=== PATIENT | female | born 1995 | race Caucasian/White ===

== ENCOUNTER 2018-05-01 16:49 | Inpatient (IN) ==
[2018-05-01] MEDS ORDERED: CefOXitin Inj 2 GM in Sodium Chloride 0.9% 100 ML IV PRN (16:58)
[2018-05-01] MEDS ORDERED: BUTORPHANOL TARTRATE 2 MG/1 ML VIAL IVP PRN (16:58)
[2018-05-01] MEDS ORDERED: OXYTOCIN 10 UNIT/1 ML IM PRN (16:58)
[2018-05-01] MEDS ORDERED: LIDOCAINE W/ SODIUM BICARB 0.5 ML SYR SUBD PRN (16:58)
[2018-05-01] MEDS ORDERED: MISOPROSTOL 200 MCG TABLET RECTAL PRN (16:58)
[2018-05-01] MEDS ORDERED: fentaNYL Inj 100 MCG/2 ML VIAL IV PRN (16:58)
[2018-05-01] MEDS ORDERED: FAMOTIDINE 20 MG/2 ML VIAL IVP PRN ×2 (16:58)
[2018-05-01] MEDS ORDERED: ePHEDrine Inj 50 MG/ML AMP IVP PRN (16:58)
[2018-05-01] MEDS ORDERED: diphenhydrAMINE 50 MG/1 ML VIAL IVP PRN (16:58)
[2018-05-01] MEDS ORDERED: Phenylephrine Inj 50 MCG in Sodium Chloride 0.9% vial 0.5 ML IVP PRN (16:58)
[2018-05-01] MEDS ORDERED: CITRIC ACID/SODIUM CITRATE 30 ML CUP PO PRN (16:58)
[2018-05-01] MEDS ORDERED: NALOXONE 0.4 MG/1 ML VIAL IVP PRN (16:58)
[2018-05-01] MEDS ORDERED: Misoprostol Tab 100 MCG TAB VAGINAL PRN (16:58)
[2018-05-01] MEDS ORDERED: METHYLERGONOVINE MALEATE 0.2 MG/1 ML VIAL IM PRN (16:58)
[2018-05-01] MEDS ORDERED: Metoclopramide Inj 10 MG/2 ML VIAL IV PRN (16:58)
[2018-05-01] MEDS ORDERED: Naloxone Inj 0.01 MG in Sodium Chloride 0.9% vial 1 ML IVP PRN (16:58)
[2018-05-01] MEDS ORDERED: TERBUTALINE SULFATE 1 MG/1 ML SDV SUBCUT PRN (16:58)
[2018-05-01] MEDS ORDERED: Lidocaine 1% 10 MG/ML - 20 ML VIAL SUBCUT PRN (16:58)
[2018-05-01] MEDS ORDERED: Zolpidem Tab 5 MG TAB PO PRN (16:58)
[2018-05-01] MEDS ORDERED: CALCIUM CARBONATE 500 MG (TUMS) CHEWABLE TABLET PO PRN (16:58)
[2018-05-01] MEDS ORDERED: Nalbuphine Inj 20 MG/ML Ampule IVP PRN (16:58)
[2018-05-01] MEDS ORDERED: Carboprost Inj 250 MCG/ML AMP IM PRN (16:58)
[2018-05-01] MEDS ORDERED: ONDANSETRON 4 MG/2 ML VIAL IVP PRN (16:58)
[2018-05-01] MEDS ORDERED: LIDOCAINE HCL 2 % 10 ML JELLY URO-JECT TOPICAL PRN (16:58)
[2018-05-01] MEDS ORDERED: Oxytocin 20 Units + LR 20 UNIT/1,000 ML BAG IV SCH ×2 (17:00→20:15)
--- NOTE | 2018-05-01 17:28 | OB.PROGRES ---
Interval History: Patient is a 23-year-old 010 at 39-2/7 weeks who presents today for cervical ripening and induction of labor. Patient's antepartum course has essentially been uncomplicated. Patient had an ultrasound on 04/13/2018 which showed EFW to be 3022 g which was the 86 percentile. Anterior placenta. The patient is very petite and weight 98 pounds prior to conception. One hour Glucola was normal. Rh+. GBS negative. The patient did have acute gastroenteritis this last week and saw me on Thursday and did have a reactive nonstress test and normal HONEY. The patient is not get IV fluids and improved at home. Then the patient found out on that her father was going to lose his healthcare insurance and therefore her Healthcare insurance on 05/03/2018 secondary to not working at that specific job after 05/02/2018. The patient then contacted my office to ask if she could have an induction of labor secondary to losing her insurance benefits. The induction was set up and then just today I did learn that her insurance will be extended through May 2018 because her father will work in May 2018 at that specific job. The patient states she has had occasional contractions. Positive movement, no bleeding. No gush of fluid. Patient's cervix was checked the other day and it was cephalic. the patient is a 22-year-old LMP 08/02/2017 with for home positive test who presents today to confirm . Positive nausea. The patient had some bleeding on Thursday but since resolved. Patient was not seen in the emergency room for this. No other specific problems. 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 Normal. Positive history of oral herpes but has not had an outbreak. No chlamydia or gonorrhea. Menarche around 10 or 11. OB history with one spontaneous first trimester . Past medicalHistory noncontributory. No hypertension, no diabetes, no asthma. Past surgical noncontributory No known drug allergies Tobacco -None, alcohol none, drugs none. Family history of heart disease. Objective - Cervical Exam Cervical Exam: 1-2/-2 cephalic [place]: Contractions every 2-4 minutes Heart Rate Interpretation Category: Category I - Additional Details Additional Details: Abdomen is soft and gravid and nontender without guarding or rebound. Assessment and Plan - Assessment / Plan Additional Assessment/Plan Details: Assessment: IUP 39-2/7 weeks for cervical ripening and induction of labor. Patient's cervix is 1-2/60/-2 GBS negative Rh+ The patient is very petite and weight 98 pounds prior to conception. Plan: I spoke with the patient about cervical ripening and induction of labor. I discussed the off label use of Cytotec for cervical ripening. I did explain the process that induction of labor with cervical ripening may take several days. I also discussed with the patient that she is very petite and this baby may weigh 6181-0441 g by an ultrasound 2+ weeks ago which showed an EFW of 3022 g. We discussed arrest of dilation, arrest of dissent, shoulder dystocia, Erb's palsy, third and fourth degree laceration and extensions and incontinence of stool or gas, and we discussed primary section and the risk, benefits, alternatives and indications for primary section. The patient would like a trial of labor with cervical ripening. The patient does understand that she is petite and that she may not be able to easily have a vaginal delivery. I also expressed to the patient that I would be very hesitant to perform an operative vaginal delivery secondary to size of the baby unless it was an outlet vacuum. Patient expressed understanding with the current plan. Category 1 heart rate tracing but the patient currently is showing contractions that are every 2-4 minutes. If the patient's contractions continue, Cytotec will not be use currently. Low-dose Pitocin will be used. If the contractions to resolve, then Cytotec will be used. Continue to observe closely for cervical ripening and heart rate tracing.
[2018-05-01 18:37] LABS: Hematocrit [HCT] 37.3 % (37.0-47.0); Hemoglobin [HGB] 12.4 g/dL (12.0-16.0); MEAN CORPUSCULAR HEMOGLOBIN 28.2 PG (27-31); MEAN CORPUSCULAR HGB CONC 33.2 g/dL (33-37); MEAN CORPUSCULAR VOLUME 84.8 FL (81-99); MEAN PLATELET VOLUME 9.9 FL (7.4-12.2); RED BLOOD COUNT 4.4 10^6/uL (4.20-5.40)
[2018-05-01] MEDS: Lactated Ringers-OB Dept 1,000 ML PRIMARY IV SCH (18:55)
[2018-05-02] MEDS: Lactated Ringers-OB Dept 1,000 ML PRIMARY IV SCH ×3 (05:35→16:18)
--- NOTE | 2018-05-02 10:32 | OB.PROGRES ---
Interval History: The patient states that she had strong contractions and did not sleep well when she was on 1 milliunit Pitocin. Now that the Pitocin has been off, she was able to get some sleep and feels the contractions but they are not as painful. No gush of fluid. No bleeding. Positive movement. Objective - Cervical Exam Cervical Exam: 2-3/80/-2 by nurse's exam. Currently, patient is on the inflatable ball and I did not check the patient. [place]: Contractions every 2-4 minutes Heart Rate Interpretation Category: Category I - Labs CBC and BMP: 05/01/18 16:58 - Vital Signs Last Taken Vital Signs: Vital Signs - Last Taken Temperature 98.1 F 05/02/18 09:30 Pulse Rate 81 05/02/18 09:30 Respiratory Rate 16 05/02/18 09:30 Blood Pressure 116/74 05/02/18 09:30 Pulse Ox 98 05/02/18 09:30 Assessment and Plan - Assessment / Plan Additional Assessment/Plan Details: Assessment: IUP 39-3/7 weeks with some cervical change by nurse's exam this mor jennifer with cervical ripening with Pitocin since patient was marisol when she presented yesterday for cervical ripening. Plan: Add Pitocin 1 milliunit currently and may increase by 1 milliunit at a time. Will check patient in a couple hours. Close observation
--- NOTE | 2018-05-02 12:22 | OB.PROGRES ---
Interval History: The patient is uncomfortable with contractions. No gush of fluid. She has been bouncing on the ball. This makes her more comfortable. Objective - Cervical Exam Cervical Exam: 2-3 (tight 3 cm)/80/-3 cephalic. The cervix is moderate to soft in consistency [place]: Contractions every 2-3-4 minutes on 2 milliunits of Pitocin Heart Rate Interpretation Category: Category I - Labs CBC and BMP: 05/01/18 16:58 - Vital Signs Last Taken Vital Signs: Vital Signs - Last Taken Temperature 98 F 05/02/18 10:30 Pulse Rate 74 05/02/18 11:30 Respiratory Rate 16 05/02/18 10:30 Blood Pressure 114/82 05/02/18 11:30 Pulse Ox 98 05/02/18 11:00 Assessment and Plan - Assessment / Plan Additional Assessment/Plan Details: Assessment: IUP 39-3/7 weeks with Pitocin for cervical ripening since patient was marisol too often for Cytotec. There has been some cervical change since yesterday which is great. The baby is at -3 station. Yesterday I thought the AB said maybe at -2 station but today -3 station. Category 1 heart rate tracing. GBS negative Plan: Pitocin for cervical ripening. Follow closely. I would like the patient's cervix to ripen more and dilate more prior to AROM if possible. Fentanyl 50-100 g IV every 2 hours to 4 hours when necessary pain I would like the patient to hold off on an epidural currently. When AROM does occur, I will consider an IUPC and most likely place one.
[2018-05-02] MEDS ORDERED: fentaNYL Inj 100 MCG/2 ML VIAL IV PRN (15:02)
--- NOTE | 2018-05-02 16:18 | OB.PROGRES ---
Interval History: The patient did receive some fentanyl about 1 hour ago and this has helped with her discomfort somewhat. Patient doing well. No gush of fluid. Patient was able to get a low bit asleep. Objective - Cervical Exam Cervical Exam: 2-3 (tight 3 cm)/80/-3 cephalic [place]: Contractions every 2-4 minutes on 3 milliunits of Pitocin. Heart Rate Interpretation Category: Category I (With scalp stimulation, there was a good acceleration. There are good accelerations spontaneously. Baseline is been in the 110s to 120s with good accelerations.) - Labs CBC and BMP: 05/01/18 16:58 - Vital Signs Last Taken Vital Signs: Vital Signs - Last Taken Temperature 98.2 F 05/02/18 13:35 Pulse Rate 72 05/02/18 15:10 Respiratory Rate 16 05/02/18 14:05 Blood Pressure 121/80 05/02/18 15:10 Pulse Ox 98 05/02/18 15:10 Assessment and Plan - Assessment / Plan Additional Assessment/Plan Details: Assessment: IUP 39-3/7 weeks with cervical ripening for induction of labor. Patient was marisol regularly so Pitocin has had to be used as a cervical ripening agent instead of Cytotec. Patient has received 1 dose of IV fentanyl for pain control. Patient is doing well. GBS negative Plan: The patient would like to try to eat this evening. The current plan is to turn the Pitocin off between 1700 hrs. and 1800 hrs. and then wait for the contractions to decrease in frequency hopefully so the patient can eat. Then, hopefully, the patient can sleep for about 6 hours and then the Pitocin will be restarted around 0300 hrs. Epidural around 0530 hrs. to 0600 hrs. according to anesthesia schedule and then AROM and IUPC. I did explain to the patient that if there is SROM, patient may not eat and IUPC will be placed and we will proceed. Also, if Pitocin is stopped but patient continues with painful contractions, patient will not be prescribed a regular diet but continued on clear liquids. The patient expressed understanding.
[2018-05-02] MEDS ORDERED: Fent/Bupiv 2mcg/0.0625% Epid 250 ML ONE (19:57)
--- NOTE | 2018-05-02 20:00 | CRNA.PROCE ---
Central Neuraxis Block Placemt - - Safety Measures: Time Out Taken - - Type of Block: Epidural Reason for Block: Analgesia Moniters Used During Block: SPO2, NIBP Skin Prep Used: ChloroPrep Draped: Yes Skin Infiltration - Enter Amount Used in Comment Field: 1% Xylocaine (mL): Yes (skin wheal) Spinal Needle Used: 18 Hustead 80 mm Local Anesthetic - Enter Amount Used in Comment Field: 1.5 % Xylocaine with Epinephrine 1:200,000 (mL): Yes (5ml) Number of Centimeters Catheter Threaded: 4 Bioclusive Dressing Applied: Yes Anesthesia Time - Other Weight: 56.699 kg Height: 5 ft Body Mass Index (BMI): 24.4
--- NOTE | 2018-05-02 20:02 | CRNA.PROGR ---
Anesthesia Time - Procedure/Recovery Time Start Date: 05/02/18 End Date: 05/02/18 Anesthesia : Time In: 19:40 - Other Weight: 56.699 kg Height: 5 ft Body Mass Index (BMI): 24.4 Physical Status: P2 Anesthesia Type: Epidural Obstetrics: Planned vaginal delivery w/ neuraxial labor anesthesia/analog
[2018-05-02] MEDS ORDERED: fentaNYL 2 MCG/BUPIVACAINE 0.0625%/NS 0.9% 250 ML BAG EPIDURAL SCH (21:45)
[2018-05-03] MEDS: Lactated Ringers-OB Dept 1,000 ML PRIMARY IV SCH ×2 (01:16→10:02)
--- NOTE | 2018-05-03 07:24 | OB.PROGRES ---
Interval History: The patient currently has significant back discomfort and some pressure around her bladder. The patient does have a Moreno catheter. She does not have pain with contractions but has the back pain that is most significant currently. The patient was able to rest some. Last night, the Pitocin was discontinued but the patient's contractions co ntinued. The patient soaked in a tub but the contractions were hurting so the patient requested an epidural. The epidural did give her some pain relief with the contractions but the back pain is present and has been present. No gush of fluid. Objective - Cervical Exam Cervical Exam: 4-5/c/-2 cephalic. AROM with clear fluid. The head is not bearing down on the cervix circumferentially. There is significant room posteriorly. IUPC was placed at about 5:00 on a clock face. [place]: Contractions every 2-3 minutes spontaneously. Currently, the patient is not receiving Pitocin. Heart Rate Interpretation Category: Category I - Labs CBC and BMP: 05/01/18 16:58 - Vital Signs Last Taken Vital Signs: Vital Signs - Last Taken Temperature 98.9 F 05/03/18 03:45 Pulse Rate 76 05/03/18 06:00 Respiratory Rate 16 05/03/18 06:00 Blood Pressure 124/73 05/03/18 06:00 Pulse Ox 97 05/03/18 06:00 Assessment and Plan - Assessment / Plan Additional Assessment/Plan Details: IUP 39-4/7 weeks with cervical ripening complete overnight with the patient marisol spontaneously AROM with clear fluid and IUPC placed. The patient has significant back pain. The head position may be in the OP presentation by my exam but also with the patient's significant back pain. GBS negative Plan: IUPC in place and will measure [place] units. Pitocin will be used for augmentation if [place] units are not around 200 Continue close observation I will speak with anesthesia about the patient's back pain but I am not sure this can be relieved.
--- NOTE | 2018-05-03 11:25 | OB.PROGRES ---
Interval History: The patient states she is doing okay. Still has back pain but it is okay. Objective - Cervical Exam Cervical Exam: 5/c/-2 to -1 cephalic with caput. There is significant edema of the anterior cervix-about 3 cm of edema from 9:00 to 3:00 on a clock face. This is new since I placed the IUPC earlier this morning. I believe the baby to be in the OP presentation [place]: [place] units between 200 and 300 without Pitocin Heart Rate Interpretation Category: Category I - Labs CBC and BMP: 05/01/18 16:58 - Vital Signs Last Taken Vital Signs: Vital Signs - Last Taken Temperature 97.8 F 05/03/18 08:30 Pulse Rate 69 05/03/18 10:00 Respiratory Rate 16 05/03/18 10:00 Blood Pressure 124/73 05/03/18 10:00 Pulse Ox 100 05/03/18 11:00 Assessment and Plan - Assessment / Plan Additional Assessment/Plan Details: Assessment: IUP 39-4/7 weeks No cervical change in the past 4 hours with adequate [place] units Significant anterior cervical edema Therefore, arrest of dilation Plan: I recommended section with the patient. I spoke with the patient, her significant other and a good friend. We discussed the risk, benefits, alternatives and indications. The risk, but not limited to, of infection, bleeding, postoperative pain, hemorrhage, blood transfusion with associated risks, risk of hysterectomy which means no more children, wound infection requiring a wound VAC or other surgeries if necrotizing fasciitis were to occur and possible transfer to a tertiary care hospital for care. Damage to bowel, bladder, nerve, vessel, nicking the baby, blood clots to the legs or lungs, and the low risk of were discussed with the patient. The patient expressed understanding and is currently considering her options.
--- NOTE | 2018-05-03 11:42 | OB.OP.NOTE ---
Operative Report Surgeon: Derick Picture Frames Inspector: Sonny Allen MD Anesthesia Type: Regional (Spinal With Duramorph) Anesthesia Provider: Jasbir Velasquez CRNA (Spinal with Duramorph) Surgery Date: 05/03/18 Preoperative Diagnosis: IUP 39-4/7 weeks. Arrest of dilation with significant anterior cervical edema Postoperative Diagnosis: Same Procedure: Primary low transverse section Estimated Blood Loss (mL): 600 Fluids: 900 mL LR. Pitocin IV. About 100 mL of urine during the surgery and this was blood tinged. The blood-tinged urine was present before the surgery. Mefoxin 2 g IV before surgery. Azithromycin 500 mg IV after cord clamp Complications: None apparent Findings at Surgery: The baby was in the R OP presentation. Male with Apgars 7 and 7 Weight is currently pending ABG showed a pH of 7.26, CO2 of 49.5, HCO3 of 22.7, base excess -4 The baby appeared to be in an asynclitic cephalic presentation Indications for the Procedure: Assessment: IUP 39-4/7 weeks No cervical change in the past 4 hours with adequate [place] units Significant anterior cervical edema Therefore, arrest of dilation Plan: I recommended section with the patient. I spoke with the patient, her significant other and a good friend. We discussed the risk, benefits, alternatives and indications. The risk, but not limited to, of infection, bleeding, postoperative pain, hemorrhage, blood transfusion with associated risks, risk of hysterectomy which means no more children, wound infection requiring a wound VAC or other surgeries if necrotizing fasciitis were to occur and possible transfer to a tertiary care hospital for care. Damage to bowel, bladder, nerve, vessel, nicking the baby, blood clots to the legs or lungs, and the low risk of were discussed with the patient. The patient expressed understanding and is currently considering her options. In sent form signed Description of Procedure: The patient was taken to the operating room after the risks, benefits, alterna tives and indications of a primary section for arrest of dilation were discussed with the patient in detail. Consent forms were signed previously. The risk, but not limited to, of infection, bleeding, pain postoperatively or intraoperatively, bleeding, hemorrhage requiring blood transfusion with associated risks, hysterectomy secondary to hemorrhage or infection postoperatively, damage to bowel, bladder, nerve, vessel, ureter, nicking the baby, serious infection requiring antibiotics postoperatively and possible transfer to a tertiary care hospital, the need to transfer the baby to a tertiary care hospital for intensive care unit care secondary to lung immaturity or extremely labile glucoses or temperature instability were discussed with the patient. This would also means separation of the patient from her infant since the patient would be here at [facility] post a and the baby would be in [place], [place] for NICU care. Additionally, blood clots to the legs or lungs and the low risk of was discussed with the patient. The patient expressed understanding with the above. Consent forms have been signed previously. The patient underwent spinal anesthesia in the usual fashion. heart tones were checked and they were normal. The patient was prepped. Moreno catheter was placed. The patient was then draped sterilely. The patient was tested and anesthesia was found to be adequate. A Pfannenstiel skin incision was made. The subcutaneous tissue was bovied to the fascia. The fascia was nicked in the midline and extended laterally bilaterally using the Yankauer retractor to elevate the fascia off of the rectus muscles. Lynn clamps were then placed on either side of the midline on the fascia superiorly and the rectus muscles were dissected off of the fascia using the Bovie and bluntly. The same was done for the fascia inferiorly. The rectus muscles were gently . The peritoneum was then entered bluntly. The peritoneum was then stretched. I then placed my hand intra- abdominally to check for adhesions between the uterus and the anterior abdominal wall and there were none. The [place] retractor was then placed. The lower uterine segment of the uterus was then evaluated. A bladder flap was created using pickups and Metzenbaum scissors. The bladder was gently pushed inferiorly. A low transverse uterine incision was then made. Amniotomy was performed and there was clear amniotic fluid. The lower uterine segment was then stretched. I then placed my hand intrauterine along the baby's head and then deliver the head atraumatically. The baby was in the right occiput posterior presentation and appeared asynclitic. The head was delivered slowly and atraumatically. The anterior shoulder delivered spontaneously. The mouth and nose were bulb suctioned after delivery of the infant. The 's posterior shoulder was then delivered. Delayed cord clamping was allowed for for greater than 30-45 seconds. The cord was then clamped and cut and the baby was handed off to the waiting nurses and special weapons and tactics officer. A section of cord was then clamped and cut for cord gases and then cord blood was obtained. The placenta was then delivered with manual retraction. Membranes were teased and removed. The uterus was then exteriorized. The uterine incision was then examined. Dixon retractors were placed on the inferior lower uterine segment. The uterus incision was then closed with 0 Vicryl in a running locking fashion. A second layer was then imbricated with 0 Vicryl suture. There was good hemostasis. One [id number] suture in the midline secondary to bleeding was applied. Good hemostasis. There again appeared to be good hemostasis of the uterine incision. Attention was then turned to the patient's uterine incision again and there was good hemostasis. Irrigation posterior to the uterus and then was suctioned. The uterus was then placed back into the abdomen. The patient's right paracolic gutter was then irrigated and suctioned. Good hemostasis noted. The patient's left paracolic gutter was then irrigated and suctioned. Good hemostasis. The uterine incision was then examined again and irrigated. There appeared to be good hemostasis. The [place] retractor was then removed. The peritoneum was then identified and closed from cephalad to caudal with 3-0 Vicryl suture in a running fashion. The patient's fascia was then examined. Subfascially there was good hemostasis. The fascia was then closed with 0 Vicryl suture starting from the left side and to just past the midline and then starting at the right angle and then going to meet the other fascial suture. The 2 sutures were tied together. The fascia a ppeared to be intact. Each individual fascial suture was tied but then the sutures were tied together. The subcutaneous tissue was then examined and there were a few bleeders that were bovied. The subcutaneous tissue was then irrigated and then suctioned. The subcutaneous tissue was then closed with 3-0 Vicryl suture in a running fashion. The skin was then examined and a few areas were bovied. The incision was cleaned with a moist lap sponge. The skin was then closed with 3-0 Stratafix suture and a subcuticular fashion starting in the midline and working towards the left side and right side. The incision appeared to be well approximated. Skin prep and then half-inch Steri-Strips were placed over the incision. Sponge, instrument, and needle count were correct 2 The radiofrequency wand was also used to ensure that the count was correct. Silver[place] dressing was placed over the Steri-Stripped incision site and then an ABD pad and then paper tape. A vaginal exam was then completed and the uterus was expressed of any clot or debris. The patient was cleaned. Moreno catheter was secured. The patient was then brought to the PACU in stable condition. Plan: The patient would recover in the PACU and then her inpatient room. Currently, the baby's in the nursery on bubble CPAP. Please see the physician's notes for the . The baby's weight is currently pending. Of note, with the baby being in the ROP presentation and asynclitic presentation, as well as the anterior cervix swelling significantly, the section needed to be completed. This will be discussed with the patient. I would suggest in the future that the patient have a repeat section especially if the baby is in the OP presentation. I will discuss this with the patient.
[2018-05-03] MEDS ORDERED: AZITHROMYCIN 500 MG VIAL IV ONE (11:45)
[2018-05-03] MEDS ORDERED: Sodium Chloride 0.9% 100 ML IV ONE (11:46)
[2018-05-03] MEDS ORDERED: MORPHINE SULFATE/PF 10 MG/10 ML AMPULE ONE (11:54)
[2018-05-03] MEDS ORDERED: OXYTOCIN 10 UNIT/1 ML ONE ×2 (11:58→12:45)
[2018-05-03] MEDS ORDERED: Sodium Chloride 0.9% vial 10 ML ONE (11:58)
[2018-05-03] MEDS ORDERED: ONDANSETRON 4 MG/2 ML VIAL ONE (12:35)
[2018-05-03] MEDS ORDERED: Lactated Ringers 1,000 ML PRIMARY IV ONE (12:44)
[2018-05-03] MEDS ORDERED: KETOROLAC 30 MG/1 ML VIAL ONE (13:31)
[2018-05-03] MEDS ORDERED: oxyCODONE-ACETAMINOPHEN 5-325 TAB PO PRN (13:36)
[2018-05-03] MEDS ORDERED: DIPH,PERTUSS,TET(ADACEL) VAC/PF 0.5 ML (Tdap) IM ONE (13:36)
[2018-05-03] MEDS ORDERED: diphenhydrAMINE 50 MG/1 ML VIAL IV PRN ×2 (13:36→14:20)
[2018-05-03] MEDS ORDERED: FAMOTIDINE 20 MG/2 ML VIAL IVP PRN ×2 (13:36→14:20)
[2018-05-03] MEDS ORDERED: Nalbuphine Inj 20 MG/ML Ampule IVP PRN ×2 (13:36→14:20)
[2018-05-03] MEDS ORDERED: BUTORPHANOL TARTRATE 2 MG/1 ML VIAL IVP PRN ×2 (13:36→14:20)
[2018-05-03] MEDS ORDERED: diphenhydrAMINE 25 MG CAPSULE PO PRN ×2 (13:36→14:20)
[2018-05-03] MEDS ORDERED: ONDANSETRON 4 MG/2 ML VIAL IVP PRN ×2 (13:36→14:20)
[2018-05-03] MEDS ORDERED: Naloxone Inj 0.01 MG, Sodium Chloride 0.9% vial 1 ML IVP PRN ×4 (13:36→14:20)
[2018-05-03] MEDS ORDERED: CALCIUM CARBONATE 500 MG (TUMS) CHEWABLE TABLET PO PRN ×2 (13:36→14:20)
[2018-05-03] MEDS ORDERED: LANOLIN HPA 40 GM TUBE TOPICAL PRN ×2 (13:36→14:20)
--- NOTE | 2018-05-03 13:39 | CRNA.PROGR ---
Anesthesia Time - Procedure/Recovery Time Start Date: 05/03/18 End Date: 05/03/18 Anesthesia : Time In: 12:13 Anesthesia : Time Out: 13:32 Anesthesia : Total Time: 79 - Total Anesthesia Time Total Anesthesia Time (minutes): 79 - Other Weight: 56.699 kg Height: 5 ft Body Mass Index (BMI): 24.4 Physical Status: P2 Anesthesia Type: Spinal Block Obstetrics: C/S with anesthesia/analog following neuraxial labor (epidural DC'd upon arrival to OR, SAB placed)
[2018-05-03] MEDS ORDERED: LIDOCAINE W/ SODIUM BICARB 0.5 ML SYR SUBD PRN (13:41)
[2018-05-03] MEDS ORDERED: HYDROmorphone 2 MG/1 ML IVP PRN (13:41)
--- NOTE | 2018-05-03 13:41 | CRNA.PROCE ---
Central Neuraxis Block Placemt - - Safety Measures: Time Out Taken - - Type of Block: Subarachnoid Reason for Block: Surgical Moniters Used During Block: EKG, SPO2, NIBP Skin Prep Used: ChloroPrep Draped: Yes Skin Infiltration - Enter Amount Used in Comment Field: 1% Xylocaine (mL): Yes (skin wheal) Spinal Needle Used: 25 Araceli 80 mm Local Anesthetic - Enter Amount Used in Comment Field: 0.75 % Bupivacaine with Dextrose (ml): Yes (15mg(2ml)) Additive Used - Enter Amount Used in Comment Field: Preservative Free Morphine (mg): Yes (.2mg) Bioclusive Dressing Applied: No Anesthesia Time - Other Weight: 56.699 kg Height: 5 ft Body Mass Index (BMI): 24.4
[2018-05-03] MEDS ORDERED: D5-LR 1,000 ML PRIMARY IV SCH (13:45)
[2018-05-03] MEDS ORDERED: KETOROLAC 15 MG/1 ML VIAL IVP SCH (13:45)
[2018-05-03] MEDS ORDERED: Oxytocin 20 Units + LR 20 UNIT/1,000 ML BAG IV SCH ×2 (13:45→14:20)
[2018-05-03] MEDS ORDERED: Lactated Ringers 1,000 ML PRIMARY IV SCH (13:45)
[2018-05-03] MEDS: KETOROLAC 15 MG/1 ML VIAL IVP SCH ×2 (15:58→21:57)
[2018-05-03] MEDS: oxyCODONE-ACETAMINOPHEN 5-325 TAB PO PRN (19:57)
[2018-05-03] MEDS: D5-LR 1,000 ML PRIMARY IV SCH (21:57)
[2018-05-04] MEDS: oxyCODONE-ACETAMINOPHEN 5-325 TAB PO PRN ×4 (02:01→22:04)
[2018-05-04] MEDS: KETOROLAC 15 MG/1 ML VIAL IVP SCH ×3 (04:17→13:13)
[2018-05-04 05:00] LABS: Hematocrit [HCT] 29.3 % (37.0-47.0); Hemoglobin [HGB] 9.5 g/dL (12.0-16.0); MEAN CORPUSCULAR HEMOGLOBIN 27.9 PG (27-31); MEAN CORPUSCULAR HGB CONC 32.4 g/dL (33-37); MEAN CORPUSCULAR VOLUME 86.2 FL (81-99); MEAN PLATELET VOLUME 9.9 FL (7.4-12.2); RED BLOOD COUNT 3.4 10^6/uL (4.20-5.40)
[2018-05-04] MEDS: D5-LR 1,000 ML PRIMARY IV SCH ×4 (05:42→22:35)
[2018-05-04] MEDS ORDERED: DOCUSATE 100 MG CAPSULE PO SCH (09:00)
[2018-05-04] MEDS ORDERED: Prenatal Multivitamin Tab 1 TAB TAB PO SCH (09:00)
[2018-05-04] MEDS: DOCUSATE 100 MG CAPSULE PO SCH ×2 (09:16→20:09)
[2018-05-04] MEDS: Prenatal Multivitamin Tab 1 TAB TAB PO SCH (09:16)
--- NOTE | 2018-05-04 10:58 | OB.PROGRES ---
Subjective Post Day: 1 Pain Management: IV Toradol Moreno Catheter: Yes Flatus: Yes Lochia Color: Rubra/Red Scant < 10 ml Diet: Regular [place] Feeding Method: the patient is pumping Ambulating: Yes Concerns / Additional Information: The patient has ambulated once this morning to the restroom and then over to the couch. She ordered breakfast and was currently waiting for breakfast to come when I saw her. Positive flatus. The patient is also pumping but there is not a lot of milk yet. Patient states that her pain is controlled. The patient states that she feels well and slept this morning well after her baby was transferred to [place]. The patient states that her baby was transferred to [place] secondary to the pneumothorax. She has spoken with Chito, father of baby, several times and also the hospital staff and her baby is doing much better now that the baby has a chest tube. They were hoping that the baby could be discharged tomorrow or the next day but would like the patient to come down after discharge from here at [facility] to ensure that breast-feeding is going well. The patient question when she can be discharged tomorrow so that she could go down to [place]. Objective - General General Appearance: POSITIVE: No Acute Distress, Cooperative (Patient is currently sitting on the couch comfortably talking with me.) - Cardiovacular Cardiovascular Exam: POSITIVE: RRR Edema: No Pedal Edema (Trace lower extremity edema bilaterally. No Homans bilaterally) Extremities: Negative Carl's - Bilaterally - Respiratory Respiratory Exam: POSITIVE: Clear to Auscultation - Bilaterally - Abdomen Bowel Sounds: Hypoactive Abdominal Wound Assessment: Silverlone Dressing (Dressing was Silverlon is applied. Will be removed later today or tomorrow morning when the patient showers.) - Fundus/Lochia/Perineum Uterus Consistency: Firm Uterus Position: POSITIVE: At Umbilicus (With patient sitting) Assesstment / Plan Assessment / Plan: Assessment: Postoperative day #1 status post primary low transverse section for arrest of dilation. The patient did receive Mefoxin 2 g IV prior to section and azithromycin 500 mg IV after cord clamp for prophylactic antibiotics. Patient is afebrile and with normal pulse. White count is 20,000 which can be normal post delivery and postop . Patient's H&H this morning is 9.5 and 29 The patient has ambulated once this morning. The patient's urine has cleared and is light yellow to moderate yellow color. The patient's was transported to [place] to a receiving NICU secondary to a pneumothorax. The has a chest tube in place and is doing much better according to my patient. Plan: Continue close observation Moreno catheter will be removed after patient ambulates again and tolerates ambulation well I encouraged the patient to ambulate 4 times today in the [place] SCDs while in bed Ferrous sulfate 325 mg 1 tablet twice a day will be started tomorrow Colace 100 mg twice a day when necessary constipation will be used Oxycodone/Tylenol for pain when necessary Toradol 15 mg every 6 hours 5 doses then ibuprofen will be started. Consider discharge tomorrow if patient doing well, so the patient may be driven down to [place] to see her baby and to also breast-feed.
[2018-05-04] MEDS: IBUPROFEN 800 MG TABLET PO SCH ×2 (13:22→22:04)
[2018-05-04] MEDS ORDERED: IBUPROFEN 800 MG TABLET PO SCH (13:36)
--- NOTE | 2018-05-04 14:53 | CRNA.PROGR ---
Anesthesia Note - Progress Notes Anesthesia Progress Note: Post OP Anesthesia Note Pt is sitting up in bed, she nhas been up ambulating and up to the restroom. She states that the SAB resolved as expected and denies any residual issues with the SAB. She also denies having had any pruritis or nausea from the Duramorph. She states that her pain is well under control and she is tolerating a regular diet. Current VS are stable. Vital Signs - Last Taken Temperature 97.9 F 05/04/18 13:00 Pulse Rate 82 05/04/18 13:00 Respiratory Rate 16 05/04/18 13:00 Blood Pressure 110/74 05/04/18 13:00 Pulse Ox 95 05/04/18 13:00
[2018-05-05] MEDS: oxyCODONE-ACETAMINOPHEN 5-325 TAB PO PRN ×2 (02:20→09:49)
[2018-05-05] MEDS: IBUPROFEN 800 MG TABLET PO SCH (04:57)
--- NOTE | 2018-05-05 09:13 | OB.PROGRES ---
Subjective Post Day: 2 Pain Management: PO Moreno Catheter: No Flatus: Yes Lochia Color: Serosa/Brown Scant < 10 ml Diet: Regular [place] Feeding Method: patient is pumping Ambulating: Yes Concerns / Additional Information: The patient states she is feeling well. Has rested well. Would like to be discharged so she could drive down to [place]. The plan is to stay down there for a couple days. Objective - General General Appearance: POSITIVE: No Acute Distress, Cooperative - Cardiovacular Cardiovascular Exam: POSITIVE: RRR Edema: +1 Pedal Edema Extremities: Negative Carl's - Bilaterally - Respiratory Respiratory Exam: POSITIVE: Clear to Auscultation - Bilaterally - Abdomen Bowel Sounds: Present Abdominal Wound Assessment: Silverlone Dressing (Silverlon removed and Steri- Strips were placed-40% of them. New Silverlon dressing placed. Incision clean and dry. No erythema or exudate.) - Fundus/Lochia/Perineum Uterus Consistency: Firm Uterus Position: POSITIVE: Below Umbilicus Assesstment / Plan Assessment / Plan: Assessment: Postoperative day #2 status post primary low transverse section for arrest of dilation. The patient is doing well. Afebrile. Incision is clean and dry. Plan: Discharge home today Please see the discharge plan note.
[2018-05-05 09:14] VITALS: BP 119/85; RESP 18; O2SAT 96
[2018-05-05 09:15] VITALS: TEMP 98
--- NOTE | 2018-05-05 09:30 | DCSUMMARY ---
Hospitalization Summary Admit Date: 05/01/18 Discharge Date: 05/05/18 Primary Diagnosis:: IUP 39+ weeks Secondary Diagnosis:: Arrest of dilation Primary Surgery and Date: 05/03/2018. Primary low transverse section. Other procedures: Cervical ripening with Pitocin. Artificial rupture of membranes. Intrauterine pressure catheter. Epidural. Spinal with Duramorph Delivery Type: Hospital Course: The patient was admitted on 05/01/2018 and underwent cervical ripening. Cervical ripening occurred over the next 30+ hours and on the morning of 05/03/2018 AROM with clear fluid and then IUPC was placed. 4 hours later the patient's cervix was unchanged and the anterior cervix was quite edematous. Primary section was discussed with patient and consent forms were signed. Primary low transverse section was performed. Please see the operative report. Postoperative course was uncomplicated. / Postop Complications: Uncomplicated Complications: [place] was found to have some increased respiration rate and a pneumothorax. After needle aspiration of pneumothorax was completed once here, pneumothorax continued and increased. Patient was then transferred to [place] and underwent needle aspiration of pneumothorax and baby has done well since that time. The patient, herself, initially thought that the baby had a chest tube but then it was reported to her today that the baby did not have a chest tube. The baby is doing well according to the mother. Exam - Vitals Vital Signs: Vital Signs Temperature 98.0 F Temperature Source Oral Pulse Rate [Pulse Oximeter] 82 Pulse Rate 93 Respiratory Rate 18 Blood Pressure [Right Arm] 119/85 Blood Pressure 106/97 Pulse Ox 96 Oxygen Flow Rate RA Oxygen Delivery Method Room Air Height 5 ft Weight 125 lb
[2018-05-05] MEDS: DOCUSATE 100 MG CAPSULE PO SCH (09:49)
[2018-05-05] MEDS: Prenatal Multivitamin Tab 1 TAB TAB PO SCH (09:49)
== END 2018-05-05 10:45 | disposition home or self-care (01) | DRG 788 ==
LOC: OBIP 16:49 → OBOR 05-03 11:49 → OBIP 05-03 14:00
PROVIDERS: ADMIT Obstetrics & Gynecology; ATTEND Obstetrics & Gynecology